=== PATIENT | male | born 1980 | race Caucasian/White ===

== ENCOUNTER 2023-01-17 13:09 | Emergency (ER) | payer OTHER, SELFPAY ==
[2023-01-17] VITALS (27 sets, daily range): BP systolic 114–144; BP diastolic 82–97; PULSE 64–94; RESP 14; TEMP 37.7; O2SAT 93–99; BMI 31.6
--- NOTE | 2023-01-17 13:38 | CRLHL7_ITS ---
For Patients: As a result of the Century Cures Act, medical imaging exams and procedure reports are released immediately into your electronic medical record. You may view this report before your referring provider. If you have questions, please contact your health care provider. INDICATION: Chest pain. TECHNIQUE: Chest 2 views. COMPARISON: None. FINDINGS: Cardiovascular and mediastinum: Heart size and vasculature are normal in caliber and appearance. Lungs and pleural spaces: Lungs are clear. No sign of infiltrate or mass. No sign of pleural effusion. No pneumothorax. Bones and soft tissues: No significant findings. IMPRESSION: No acute or significant findings. Dictated by Luiz Higginbotham MD @ 01/17/2023 2:41:59 PM (Electronically Signed)
--- NOTE | 2023-01-17 13:50 | ED_ITS ---
HPI - General Adult General Date Seen: 01/17/23 Chief complaint: Chest Pain Stated complaint: Chest tight, L arm numb Time Seen by Provider: 01/17/23 13:27 Source: patient Mode of arrival: ambulatory Limitations: no limitations History of Present Illness HPI narrative: Patient is a 42-year-old male with history of anxiety presenting for the emergency department for chest pain and left arm numbness. He says the symptoms started about 2 hours prior to arrival to the emergency department. He states they started suddenly while he was working at his desk. He has never had symptoms like this before. They are are improving but not totally gone yet. Denies any dyspnea. No history of blood clots, cancer, recent surgeries or trauma, unilateral leg swelling. States there is no pain to palpation of his chest. Denies lightheadedness, dizziness, abdominal pain, nausea vomiting, fevers, chills, cough. Related Data Home Medications Medication Instructions Recorded Confirmed albuterol sulfate 90 mcg/actuation inhalation 01/17/23 aerosol inhaler (Ventolin HFA) anxiety medication 01/17/23 benzonatate 200 mg capsule 200 mg PO 3XD PRN cough 01/17/23 01/17/23 Allergies Allergy/AdvReac Type Severity Reaction Status Date / Time animal dander Allergy Mild Itchiness Verified 01/17/23 13:20 pollen extracts Allergy Mild Itchiness Verified 01/17/23 13:20 Review of Systems Status of ROS: Reports: 10 or more systems reviewed and unremarkable except as noted in History and below PFSH PFS Medical History Encounter for pre-operative examination ?Z01.818 - Encounter for other preprocedural examination (ICD-10) Anxiety ?F41.9 - Anxiety disorder, unspecified (ICD-10) Depression ?F32.A - Depression, unspecified (ICD-10) Surgical History History of decompression of ulnar nerve ?Z98.890 - Other specified postprocedural states (ICD-10) H/O elbow surgery ?Z98.890 - Other specified postprocedural states (ICD-10) History of carpal tunnel surgery ?Z98.890 - Other specified postprocedural states (ICD-10) History of axillary surgery ?Z98.890 - Other specified postprocedural states (ICD-10) Family History Mother Ovarian cancer Social History Narrative: 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 Moist mucous membranes. Neck: Symmetric, trachea midline, No thyromegaly. CVS: RRR, No murmurs or gallops. Peripheral pulses 2+ and equal in all extremities RESP: Unlabored respiratory effort. Clear to auscultation bilaterally. GI: Nontender/Nondistended, No rebound or guarding. MSK:Extremities w/o deformity, Normal Active ROM Skin: Warm, Dry. No rashes or lesions. Neuro: Normal Muscle tone, No focal neurological deficits. Psych: Awake, Alert, & Oriented x3. Appropriate mood and affect. Const: Vital Signs, click to edit/add: Vital Signs - 24 hr 01/17/23 13:15 01/17/23 13:28 01/17/23 13:29 Temperature 99.8 F H Pulse Rate 86 83 Pulse Rate [Pulse Oximeter] 94 Respiratory Rate 14 Blood Pressure 136/96 H Blood Pressure [Ri ght Upper Arm] 144/97 H Pulse Oximetry 98 97 97 Oxygen Delivery Me thod Room Air 01/17/23 13:30 01/17/23 13:31 01/17/23 13:45 Temperature Pulse Rate 85 83 76 Pulse Rate [Pulse Oximeter] Respiratory Rate Blood Pressure 127/88 Blood Pressure [Ri ght Upper Arm] Pulse Oximetry 97 96 96 Oxygen Delivery Me thod 01/17/23 14:00 01/17/23 14:01 01/17/23 14:15 Temperature Pulse Rate 74 78 79 Pulse Rate [Pulse Oximeter] Respiratory Rate Blood Pressure 135/90 H Blood Pressure [Ri ght Upper Arm] Pulse Oximetry 96 96 99 Oxygen Delivery Me thod 01/17/23 14:30 01/17/23 14:31 01/17/23 14:45 Temperature Pulse Rate 77 80 71 Pulse Rate [Pulse Oximeter] Respiratory Rate Blood Pressure 120/82 Blood Pressure [Ri ght Upper Arm] Pulse Oximetry 93 98 98 Oxygen Delivery Me thod 01/17/23 15:00 01/17/23 15:01 01/17/23 15:15 Temperature Pulse Rate 73 79 71 Pulse Rate [Pulse Oximeter] Respiratory Rate Blood Pressure 128/91 H Blood Pressure [Ri ght Upper Arm] Pulse Oximetry 96 95 96 Oxygen Delivery Me thod 01/17/23 15:30 01/17/23 15:31 01/17/23 15:32 Temperature Pulse Rate 73 76 75 Pulse Rate [Pulse Oximeter] Respiratory Rate Blood Pressure 127/84 Blood Pressure [Ri ght Upper Arm] Pulse Oximetry 95 96 96 Oxygen Delivery Me thod 01/17/23 15:45 01/17/23 16:00 01/17/23 16:01 Temperature Pulse Rate 73 80 72 Pulse Rate [Pulse Oximeter] Respiratory Rate Blood Pressure 114/83 Blood Pressure [Ri ght Upper Arm] Pulse Oximetry 96 96 97 Oxygen Delivery Me thod 01/17/23 16:15 Temperature Pulse Rate 64 Pulse Rate [Pulse Oximeter] Respiratory Rate Blood Pressure Blood Pressure [Ri ght Upper Arm] Pulse Oximetry 95 Oxygen Delivery Me thod Course Vital Signs Vital signs: Initial Vital Signs Temperature 99.8 F H 01/17/23 13:15 Temperature Source Temporal Artery Scan 01/17/23 13:15 Pulse Rate 94 01/17/23 13:15 Respiratory Rate 14 01/17/23 13:15 Blood Pressure 144/97 H 01/17/23 13:15 Blood Pressure Mean 112 H 01/17/23 13:15 Blood Pressure Position Sitting 01/17/23 13:15 Pulse Oximetry 98 01/17/23 13:15 Oxygen Delivery Method Room Air 01/17/23 13:15 Vital Signs Temperature 99.8 F H 01/17/23 13:15 Pulse Rate 94 01/17/23 13:15 Respiratory Rate 14 01/17/23 13:15 Blood Pressure 144/97 H 01/17/23 13:15 Pulse Oximetry 98 01/17/23 13:15 Oxygen Delivery Method Room Air 01/17/23 13:15 Temperature 99.8 F H 01/17/23 13:15 Pulse Rate 64 01/17/23 16:15 Respiratory Rate 14 01/17/23 13:15 Blood Pressure 114/83 01/17/23 16:01 Pulse Oximetry 95 01/17/23 16:15 Oxygen Delivery Method Room Air 01/17/23 13:15 Medical Decision Making [facility] Narrative Medical decision making narrative: Patient is a 42-year-old male presents emergency department for left-sided chest pain and left arm numbness. The symptoms have been improving since he came to the emergency department. He has never had symptoms like this before. No history of heart disease. We will do a cardiac workup. He is PERC negative and thus PE is very unlikely and D-dimer is not necessary. We will do chest x-ray , CBC, CMP, EKG, troponin Lab work returns showing no concerning abnormalities. Initial troponin was within normal limits. Her repeat a troponin and that was also within normal limits. COVID and flu were negative. No electrolyte abnormalities. Chest x- ray did not show any signs of pneumonia or pneumothorax. His heart score at this time is 0. At this time I am not able to definitively say what his symptoms are from but does not appear to be any emergent cause. At this he states his symptoms are greatly improved infuse well enough to go home. He will be discharged Lab Data Labs: Lab Results 01/17/23 01/17/23 Range/Units 13:38 16:23 WBC 5.12 (4.50-11.00) K/uL RBC 4.91 (4.30-5.90) m/uL Hgb 15.0 (13.5-17.5) gm/dL Hct 43.2 (37.0-53.0) % MCV 88 (80-100) fL MCH 31 (26-34) pg MCHC 35 (32-36) gm/dL RDW Coeff of Ghada 12.0 (11.5-15.5) % Plt Count 237 (140-440) K/uL Neut % (Auto) 75.2 H (42.0-72.0) % Lymph % (Auto) 16.4 L (20-44) % [place] % (Auto) 7.0 (0.0-11.0) % Eos % (Auto) 0.8 (0.0-7.0) % Baso % (Auto) 0.4 (0.0-3.0) % Neut # (Auto) 3.90 (1.7-7.0) K/uL Lymph # (Auto) 0.80 L (0.90-2.90) K/uL [place] # (Auto) 0.40 (0.00-0.90) K/UL Eos # (Auto) 0.04 (0.00-0.50) K/uL Baso # (Auto) 0.02 (0.00-0.30) K/uL Abs Immat Gran (auto) 0.01 (0.00-0.30) K/uL Imm/Tot Granulo (auto) 0.2 % Sodium 140 (135-149) mmol/L Potassium 3.7 (3.6-5.1) mmol/L Chloride 104 (96-114) mmol/L Carbon Dioxide 23 (20-32) mmol/L Anion Gap 13 (7-15) mEq/L BUN 9 (5-24) mg/dL Creatinine 1.0 (0.5-1.5) mg/dL Estimated Creat Clear 101.39 Estimated GFR 98 ml/min Glucose 89 (60-115) mg/dL Calcium 9.2 (8.4-10.6) mg/dL Troponin I < 0.01 L < 0.01 L (0.01-0.04) ng/mL SARS-CoV-2 (PCR) Negative SARS-CoV-2 (Negative) Influenza Type A (PCR) Negative PCR FLU A (Negative) Influenza Type B (PCR) Negative PCR FLU B (Negative) Imaging Data Chest x-ray: Radiologist's impression: INDICATION: Chest pain. TECHNIQUE: Chest 2 views. COMPARISON: None. FINDINGS: Cardiovascular and mediastinum: Heart size and vasculature are normal in caliber and appearance. Lungs and pleural spaces: Lungs are clear. No sign of infiltrate or mass. No sign of pleural effusion. No pneumothorax. Bones and soft tissues: No significant findings. IMPRESSION: No acute or significant findings. Dictated by Luiz Higginbotham MD @ 01/17/2023 2:41:59 PM ECG Data Attestation: I personally reviewed and interpreted this ECG as follows: Prior ECG tracings: not available for review Interpretation: Normal sinus rhythm with a rate 94 beats per minute, normal intervals, normal axis, no ST or T-wave abnormalities. Discharge Plan Discharge Clinical Impression: Atypical chest pain Patient Disposition: Home, Self-Care Condition: Stable Instructions: Noncardiac Chest Pain (ED) Additional Instructions: If symptoms continue follow-up with the primary care provider. Can otherwise return here for new or worsening symptoms. Lab work and imaging shows is not likely be your heart or lungs causing the problems Prescriptions: No Action benzonatate 200 mg capsule 200 mg PO 3XD PRN (Reason: cough) albuterol sulfate [Ventolin HFA] 90 mcg/actuation HFA aerosol inhaler inhalation anxiety medication Patient Comments: Pt unsure of name of drug. Follow Up/Referrals: Provider,Not a Local [Primary Care Provider] - Stand Alone Forms: [email or web address] Info Instructions
[2023-01-17 14:23] LABS: Basophils Absolute Auto 0.02 K/uL (0.00-0.30); Basophils Percent Auto 0.4 % (0.0-3.0); Eosinophils Absolute Auto 0.04 K/uL (0.00-0.50); Eosinophils Percent Auto 0.8 % (0.0-7.0); Hematocrit 43.2 % (37.0-53.0); Immature Granulocytes Abs Auto 0.01 K/uL (0.00-0.30); Immature Granulocytes Pct Auto 0.2 %; Lymphocytes Percent Auto 16.4 % (20-44); Mean Corpuscular HGB Conc 35 gm/dL (32-36); Mean Corpuscular Hemoglobin 31 pg (26-34); Mean Corpuscular Volume 88 fL (80-100); Neutrophils Percent Auto 75.2 % (42.0-72.0); Platelet Count* 237 K/uL (140-440); Red Blood Count 4.91 m/uL (4.30-5.90); White Blood Count* 5.12 K/uL (4.50-11.00)
[2023-01-17 14:25] LABS: Slide Review Reflex No
[2023-01-17 14:58] LABS: PCR FLU A Negative PCR FLU A (Negative); PCR FLU B Negative PCR FLU B (Negative)
[2023-01-17 15:00] LABS: SARS PCR* Negative SARS-CoV-2 (Negative)
[2023-01-17 15:07] LABS: Chloride* 104 mmol/L (96-114)
[2023-01-17 15:08] LABS: Potassium* 3.7 mmol/L (3.6-5.1); Sodium* 140 mmol/L (135-149)
[2023-01-17 15:10] LABS: Est. Creatinine Clearance* 101.39; Estimated Glomerular Filt Rate 98 ml/min
[2023-01-17 15:11] LABS: Anion Gap 13 mEq/L (7-15); Blood Urea Nitrogen* 9 mg/dL (5-24); Calcium* 9.2 mg/dL (8.4-10.6); Carbon Dioxide* 23 mmol/L (20-32); Glucose* 89 mg/dL (60-115)
[2023-01-17 15:24] LABS: Troponin I* < 0.01 ng/mL (0.01-0.04)
[2023-01-17 17:00] LABS: Troponin I* < 0.01 ng/mL (0.01-0.04)
== END 2023-01-17 17:18 | disposition home or self-care (01) ==
PROVIDERS: Emergency Provider Student in an Organized Health Care Education/Training Program
DX: R07.89 Other chest pain (principal)
CPT/HCPCS: 36415; 71046; 80048; 84484; 85025; 87631; 93005; 99283; 99284; 99285

== ENCOUNTER 2023-02-02 13:02 | Outpatient (CLI) | payer OTHER, SELFPAY | END 2023-02-02 13:03 | disposition home or self-care (01) | LOC: LKVREF 13:03 | PROVIDERS: Visit Provider Emergency Medicine | DX: E78.5 Hyperlipidemia, unspecified (principal) | CPT/HCPCS: 80061 ==

== ENCOUNTER 2023-02-08 12:29 | Outpatient (CLI) | payer OTHER, SELFPAY ==
--- NOTE | 2023-02-08 13:00 | CRLHL7_ITS ---
For Patients: As a result of the Century Cures Act, medical imaging exams and procedure reports are released immediately into your electronic medical record. You may view this report before your referring provider. If you have questions, please contact your health care provider. INDICATION: Pain COMPARISON: None. TECHNIQUE: Left upper extremity and neck venous ultrasound performed as well as ultrasound of right internal jugular vein including swanson scale/2D, color Doppler, and spectral Doppler imaging including spectral waveform analysis. FINDINGS: The internal jugular, innominate, subclavian, axillary, basilic, cephalic, and brachial veins were patent and negative for thrombus. IMPRESSION: No evidence for DVT in the left upper extremity and neck venous system. Dictated by Tommy Zabala MD @ 02/10/2023 5:54:23 AM (Electronically Signed)
== END 2023-02-08 12:30 | disposition home or self-care (01) ==
PROVIDERS: PCP Emergency Medicine; Visit Provider Emergency Medicine
DX: M79.602 Pain in left arm (principal)
CPT/HCPCS: 93971